=== PATIENT | male | born 1955 | race Caucasian/White ===

== ENCOUNTER 2017-09-16 17:15 | Emergency (ER) | payer OTHER, BC ==
[~2017-09-16] VITALS: Ht 188 cm; Wt 113.6 kg
[~2017-09-16 17:15] MED LIST: ADULT LOW DOSE81 M1 PO; AMIODARONE HCL400 MG PO; ASPIRIN E.C.81 M1 PO; BACTRIM,SEPT1 TABLET PO; CEFDINIR300 MG PO; CENTRUM SILVER1 EAC1 PO; CIALIS20 MG PO; COLACE100 MG PO; GLUCOPHAGE500 MG PO; LANTUS 10100 UNITS/ SC; LANTUS 3 M100 UNITS/ SC; LANTUS 3 M100 UNITS1 SC; LIPITOR PO; LIPITOR10 MG PO; LIPITOR20 MG PO; LIPITOR80 MG PO; METFORMIN HCL500 M4 PO; METFORMIN HCL500 MG PO; NOVOLOG MI100 UNIT/2 SQ; NOVOLOG PE100 UNITS/ SC; Nitrostat,NitroQuick SL; Norvasc PO; PLAVIX75 MG PO; PRADAXA150 MG PO; PRINIVIL10 MG PO; TOPROL PO; TOPROL XL100 MG PO; TOPROL XL50 MG PO; VITAMIN D31000 UNIT PO; ZESTRIL,PRINIVI10 MG PO
[2017-09-16 17:57] LABS: HEMATOCRIT 47.9 % (38.0-50.0); MCH 29.9 PG (29.0-34.0); MCHC 33.4 G/DL (30.0-36.0); MCV 89.4 FL (86-99); PLATELET COUNT 98 K/uL (156-360); RBC DIS.WIDTH-CV 12.9 % (11.8-14.6); RBC DIS.WIDTH-SD 41.8 % (39-53); RED BLOOD COUNT 5.36 M/uL (4.00-5.50); WHITE BLOOD COUNT 10.8 K/uL (4.1-10.2)
[2017-09-16 18:08] LABS: ALBUMIN 4.3 g/dL (3.2-4.8); CHLORIDE 102 mEq/L (99-109); POTASSIUM 4.8 mEq/L (3.7-5.4); SODIUM 135 mEq/L (136-147)
[2017-09-16 18:10] LABS: GLUCOSE 132 mg/dL (70-99)
[2017-09-16 18:11] LABS: TOTAL PROTEIN 7.8 g/dL (6.4-8.3)
[2017-09-16 18:14] LABS: ALKALINE PHOSPHATASE 61 IU/L (3-129); GFR ESTIMATE (CALCULATED) > 59 mL/min/ (58.99-99999)
[2017-09-16 18:15] LABS: UREA NITROGEN (BUN) 23 mg/dL (9-23)
[2017-09-16 18:16] LABS: AST (GOT) 31 IU/L (2-34)
[2017-09-16 18:17] LABS: ALT (GPT) 31 IU/L (3-49)
[2017-09-16 18:19] LABS: TROP-I INTERPRETATION NEGATIVE; TROPONIN-I < 0.01 ng/mL (0.0-0.30)
[2017-09-16] MEDS ORDERED: MOTRIN800 MG PO (20:38)
[2017-09-16] MEDS ORDERED: FLEXERIL10 MG PO (20:38)
[2017-09-16 21:01] VITALS: BP 141/71
== END 2017-09-16 21:26 | disposition home or self-care (01) ==
LOC: EME 17:15
PROVIDERS: Nurse Practitioner Family
DX: S13.4XXA Sprain of ligaments of cervical spine, initial encounter (principal); S00.81XA Abrasion of other part of head, initial encounter; S00.03XA Contusion of scalp, initial encounter; S10.93XA Contusion of unspecified part of neck, initial encounter; R68.84 Jaw pain; M79.601 Pain in right arm; M79.602 Pain in left arm; V47.5XXA Car driver injured in collision with fixed or stationary object in traffic accident, initial encounter; W22.10XA Striking against or struck by unspecified automobile airbag, initial encounter; Y92.410 Unspecified street and highway as the place of occurrence of the external cause; M50.321 Other cervical disc degeneration at C4-C5 level; I10 Essential (primary) hypertension; E11.9 Type 2 diabetes mellitus without complications; Z79.4 Long term (current) use of insulin; I48.91 Unspecified atrial fibrillation; I25.2 Old myocardial infarction; Z95.1 Presence of aortocoronary bypass graft; Z79.01 Long term (current) use of anticoagulants; Z79.82 Long term (current) use of aspirin; Z87.891 Personal history of nicotine dependence
CPT/HCPCS: 70450; 72125; 80053; 84484; 85027; 93005; 99281; 99284